=== PATIENT | male | born 1975 | race Caucasian/White ===

== ENCOUNTER 2016-12-26 09:16 | Emergency (ER) | payer SELFPAY ==
[2016-12-26] MEDS ORDERED: Ibuprofen 800 MG TAB ONE (10:07)
[2016-12-26] MEDS ORDERED: Dexamethasone 10 MG/ML VIAL ONE (10:07)
[2016-12-26] MEDS ORDERED: Azithromycin 250 MG TAB ONE (10:07)
== END 2016-12-26 10:44 | disposition home or self-care (01) ==
LOC: ERS 09:16
DX: J04.0 Acute laryngitis (principal); J40 Bronchitis, not specified as acute or chronic; F17.210 Nicotine dependence, cigarettes, uncomplicated
CPT/HCPCS: 87081; 87430; 96372; 99406; J1100

== ENCOUNTER 2018-07-23 15:33 | Emergency (ER) | payer SELFPAY | END 2018-07-23 17:04 | disposition left against medical advice (07) | LOC: ERS 15:33 | DX: R19.7 Diarrhea, unspecified (principal); R50.9 Fever, unspecified; F32.9 Major depressive disorder, single episode, unspecified; F17.210 Nicotine dependence, cigarettes, uncomplicated | CPT/HCPCS: 99284 ==

== ENCOUNTER 2019-02-27 10:14 | Emergency (ER) | payer OTHER, SELFPAY ==
--- NOTE | 2019-03-01 12:02 | EKG ---
Test Reason : Blood Pressure : / mmHG Vent. Rate : 082 BPM Atrial Rate : 082 BPM P-R Int : 148 ms QRS Dur : 082 ms QT Int : 372 ms P-R-T Axes : 053 -16 026 degrees QTc Int : 434 ms Normal sinus rhythm Moderate voltage criteria for LVH, may be normal variant Borderline ECG Confirmed by REECE MCGILL MD ([id number]), associate editor NICHOLAS FRAIRE ([id number] on 03/01/2019 12:02:03 PM Referred By: Confirmed By:REECE MCGILL MD
== END 2019-02-27 12:25 | disposition home or self-care (01) ==
LOC: ERS 10:14
DX: E86.0 Dehydration (principal); R53.1 Weakness; F32.9 Major depressive disorder, single episode, unspecified; F17.210 Nicotine dependence, cigarettes, uncomplicated
CPT/HCPCS: 93005; 94760

== ENCOUNTER 2019-12-10 14:32 | Inpatient (IN) | payer BC, OTHER ==
[~2019-12-10 14:32] MED LIST: Dexamethasone 20 MG/5 ML VIAL ONE; Glycopyrrolate 0.2 MG/ML 5 ML SYRINGE ONE; Iopamidol-370 76% 500 ML 1 ML ONE; Ketorolac Tromethamine 30 MG/ML VIAL ONE; Lidocaine 1% PF 5 ML VIAL ONE; Ondansetron PF 4 MG/2 ML Vial ONE; PROPOFOL 200 MG/20 ML VIAL ONE; Rocuronium Bromide 10 MG/ML (10ML VIAL) ONE; Succinylcholine 200 MG/10 ml SYRINGE FS ONE
--- NOTE | 2019-12-10 15:25 | RAD ---
XR Chest 1 View Portable HISTORY: Chest pain FINDINGS: The heart size is normal. The lungs are well expanded without focal areas of consolidation, pneumothorax or pleural effusions. IMPRESSION: No radiographic evidence of acute cardiopulmonary process.
[2019-12-10 15:41] LABS: #Monocytes 1.4 thou/uL (0.11-0.59); #Neutrophils 15.5 thou/uL (1.40-6.50); %Basophils 0.1 % (0.0-1.0); %Eosinophils 0.2 % (0.0-10.0); %Lymphocytes 5.8 % (21.0-51.0); %Monocytes 7.9 % (0.0-10.0); %Neutrophils 86.1 % (42.0-75.0); Hemoglobin 15.3 g/dL (14.0-18.0); Mean Corpuscular HGB CONC 33.8 g/dL (32.0-36.0); Mean Corpuscular Hemoglobin 34.6 pg (27.0-31.0); Platelet Count 360 thou/uL (130-400); RBC Distribution Width 11.7 % (11.5-14.5); Red Blood Cell (RBC) Count 4.42 mill/uL (4.70-6.10); White Blood Cell (WBC) Count 18.1 thou/uL (4.8-10.8)
[2019-12-10 16:05] LABS: ALT (SGPT) 25 U/L (8-55); AST (SGOT) 18 U/L (5-34); Albumin 4.3 g/dL (3.5-5.0); Alkaline Phosphatase 101 U/L (40-110); Anion Gap 15 mmol/L (10-20); BUN (Urea Nitrogen) 12 mg/dL (8.9-20.6); Bilirubin, Total 1.8 mg/dL (0.2-1.2); Calc. Creatinine Clearance 0 mL/min (70-130); Calcium 9.6 mg/dL (7.8-10.44); Carbon Dioxide 23 mmol/L (22-29); Chloride 100 mmol/L (98-107); Estimated GFR-MDRD Greater than 90; Globulin 3.2 g/dL (2.4-3.5); Glucose 131 mg/dL (70-105); Lipase 13 U/L (8-78); Potassium 3.5 mmol/L (3.5-5.1); Protein, Total 7.5 g/dL (6.0-8.3); Sodium 134 mmol/L (136-145)
[2019-12-10] MEDS ORDERED: Fentanyl 100 MCG/2 ML VIAL ONE ×3 (16:29→21:03)
[2019-12-10] MEDS ORDERED: Ondansetron PF 4 MG/2 ML Vial ONE (16:29)
--- NOTE | 2019-12-10 17:01 | CT ---
EXAM: CT ABDOMEN AND PELVIS HISTORY: Severe abdominal pain and cramping. Chest pain. COMPARISON: None. Procedure: Multiple contiguous axial images were obtained and a CT of the abdomen and pelvis with IV contrast. C oronal reformats were performed. FINDINGS: Lower Chest: Minimal dependent atelectatic changes. Calcified granuloma in the left lower lobe. Vessels: Normal caliber aorta. No periaortic fat stranding. Minimal atherosclerosis. Heart: Normal heart size. No significant pericardial fluid Abdomen: Portal vein:Patent Gallbladder: No calcified gallstones. Normal caliber wall. Liver: within normal limits. Pancreas: within normal limits. Spleen: within normal limits. Adrenals: within normal limits. Kidneys: Symmetric enhancement. No obstructive uropathy. Peritoneum: There is stranding of the right lower quadrant mesentery. There appears be a small focus of extraluminal air with adjacent subtle hypodense focus measuring 0.6 cm. Bowel: Limited evaluation by the lack of oral contrast. There are slightly prominent small bowel loop s in the left upper quadrant, nonspecific. Ileocecal junction is decompressed. There are scattered fecal material in a nondistended, nondilated colon. Occasional diverticulum. No diverticulitis. Emana ting from the cecal apex is a dilated tubular structure, measuring 1.3 cm. At the base of the structure is mixed attenuation compatible with appendicoliths. The mid to distal portion is fluid and air-filled. There is evidence of adjacent fat stranding. A small outpouching of air, extraluminal with adjacent hypoattenuation as described above. A perforated appendix is suspected with a developin g microabscess. Mesentery and Retroperitoneum: Reactive lymph nodes in the right lower quadrant. Abdominal Wall: Umbilical hernia containing mesenteric fat. Pelvis: Reproductive Organs: Reproductive organs are unremarkable. Pelvis: No mass, lymphadenopathy, free air or free fluid. Bladder: within normal limits. Bones: Chronic changes. IMPRESSION: 1. Appendicitis. There is evidence of perforation with a small pockets of extraluminal air as well as a possibly developing micro-abscess. There is marked stranding of the right lower quadrant mesentery. Results of study conveyed to Dr. Delaney 12/10 2019 4:58 PM code CR
[2019-12-10] MEDS ORDERED: Piperacillin/Tazobactam 4.5 GM VIAL ONE (17:19)
[2019-12-10] MEDS ORDERED: metroNIDAZOLE 500 MG/100 ML BAG ONE (17:21)
[2019-12-10] MEDS ORDERED: Bupivacaine/Epinephrine 0.25% 30 ML VIAL ONE (17:27)
[2019-12-10 17:29] LABS: INR-International Normal Ratio 0.9; Prothrombin Time 12.6 sec (12.0-14.7)
[2019-12-10] MEDS ORDERED: Midazolam HCl 2 mg/2 ml Vial ONE (17:54)
--- NOTE | 2019-12-10 18:10 | HP ---
CHIEF COMPLAINT: Abdominal pain. HISTORY OF PRESENT ILLNESS: Mr. Belcher is a 44-year-old previously healthy man, who developed abdominal pain in both flanks yesterday afternoon. He states that he was uncomfortable all night and unable to get to sleep, and this morning, when he got up and started moving around, the pain seemed to radiate up into his chest. He became concerned that it might have something to do with heart. He tried to tough it out, but the pain was not getting any better, so he ended up coming into the emergency room. He had nausea, but was not feeling any better after throwing up. He has not had any fevers or chills. He has not had any diarrhea or dysuria. The pain is made worse by activity and helped slightly by lying very still and taking "yoga breaths". He also has been more comfortable since receiving fentanyl in the emergency room. No unusual ingestions or ill contacts. 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 He smokes a pack a day and has no other chronic health problems. He did take lisinopril briefly a few years ago after his father and he was under a lot of stress, but states that his blood pressure got better and he got off that. PAST MEDICAL HISTORY: Hypertension which reportedly resolved. PAST SURGICAL HISTORY: None. FAMILY HISTORY: Heart disease in his dad related to Agent [place] exposure, lung cancer and skin cancer in various family members. MEDICATIONS: None except ibuprofen. ALLERGIES: NO KNOWN DRUG ALLERGIES. REVIEW OF SYSTEMS: Ten-system review of systems is negative. He specifically denies cough, sore throat, runny nose, shortness of breath, myalgias, or loss of sense of smell or taste. PHYSICAL EXAMINATION: VITAL SIGNS: As per ER record; mild tachycardia with elevated blood pressure. GENERAL: A healthy-appearing man, in no acute distress. He is not flushed or toxic in appearance. He is not jaundiced or icteric. HEENT: Unremarkable. Pupils are equal and extraocular movements are symmetric. NECK: Supple without lymphadenopathy or thyroid nodules. HEART: Regular in its rate and rhythm without murmurs, rubs, or gallops. LUNGS: Clear to auscultation bilaterally. He does not have any pain with deep inspiration, although he states that when he 1st came to the hospital it did hurt to take a deep breath. ABDOMEN: Soft and nondistended. He has a reducible umbilical hernia, which is nontender with reduction. He is moderately tender to palpation in the left lower quadrant and very tender to palpation in the suprapubic and right lower quadrant. Nontender in the upper abdomen. He does not exhibit rigidity, rebound, or guarding. EXTREMITIES: Warm and well perfused with normal pedal pulses. NEUROLOGIC: No focal deficits. PSYCHIATRIC: Alert and oriented and appropriate with normal affect and linear thought processes. He does not have a depressed affect, although he does have a distant history of depression. LABORATORY DATA: Electrolytes are unremarkable. Bilirubin is mildly elevated at 1.8. Troponin is less than 0.01. Lipase is normal. White count is elevated at 18,000 with a left shift of 86% neutrophils, hematocrit is 45, and platelets are 360. Coags are normal. Chest x-ray shows no acute process. CT of the abdomen and pelvis shows a dilated appendix with periappendiceal stranding and possible gas outside of the appendix adjacent to the appendix within the mesentery. ASSESSMENT: Appendicitis, perforated by CT, with sepsis. He has only had symptoms for a little over 24 hours. I have recommended laparoscopic appendectomy. He will likely require washout and drain placement and admission for IV antibiotics postoperatively. The diagnosis and the recommended treatment were discussed with the patient in detail. Inherent risks of surgery were also discussed. These include, but are not limited to, bleeding; infection; risks of anesthesia; damage to nearby structures including bowel, blood vessels, and bladder; need for open surgery, and need for other procedures. He understands, accepts these risks, and wishes to proceed. All of his questions were answered. He has been posted emergently for the operating room. Job ID: [id number] [facility]
[2019-12-10 18:22] LABS: Bilirubin Negative (Negative); Blood, Urine Negative (Negative); Clarity Clear (Clear); Glucose, Urine (Dipstick) Normal (Negative); Ketone, Urine Trace mg/dL (Negative); Leukocyte Negative Leu/uL (Negative); Nitrite Negative (Negative); Protein, Urine (Dipstick) 10 mg/dL (Neg-Trace); Urobilinogen Normal mg/dL (Less than 2)
[2019-12-10 18:25] LABS: Specific Gravity, Urine 1.051 (1.002-1.036)
[2019-12-10] MEDS ORDERED: Morphine 2 MG/ML VIAL SLOW IVP PRN (20:30)
[2019-12-10] MEDS ORDERED: Promethazine HCl 25 MG/ML VIAL IM PRN (20:30)
[2019-12-10] MEDS ORDERED: Dextrose 50% Abboject 50 ML SYRINGE SLOW IVP PRN (20:30)
[2019-12-10] MEDS ORDERED: Ondansetron PF 4 MG/2 ML Vial IVP PRN (20:30)
[2019-12-10] MEDS ORDERED: Dextrose 5% in Water 1,000 ML IV PRN (20:30)
[2019-12-10] MEDS ORDERED: Acetaminophen 325 MG TAB PO PRN (20:30)
[2019-12-10] MEDS ORDERED: Acetaminophen 650 MG Suppository PR PRN (20:30)
[2019-12-10] MEDS: D5 1/2 NS w/20 mEq KCL 1,000 ML IV SCH (21:52)
[2019-12-10] MEDS: Famotidine/PF 20 mg/2ml Vial SLOW IVP SCH (21:52)
[2019-12-10] MEDS: Famotidine 20 MG TAB PO SCH (21:53)
[2019-12-10 23:25] VITALS: BMI 27.5
[2019-12-10] MEDS: Piperacillin/Tazobactam 3.375 GM in Sodium Chloride 0.9% 100 ML IVPB SCH (23:34)
[2019-12-10] MEDS: Morphine 4 MG/ML VIAL SLOW IVP PRN (23:35)
[2019-12-11 05:18] LABS: #Lymphocytes 0.5 thou/uL (1.20-3.40); #Monocytes 0.7 thou/uL (0.11-0.59); #Neutrophils 11.4 thou/uL (1.40-6.50); %Basophils 0.3 % (0.0-1.0); %Eosinophils 0.1 % (0.0-10.0); %Lymphocytes 3.8 % (21.0-51.0); %Monocytes 5.3 % (0.0-10.0); %Neutrophils 90.5 % (42.0-75.0); Hemoglobin 12.8 g/dL (14.0-18.0); Mean Corpuscular HGB CONC 32.6 g/dL (32.0-36.0); Mean Corpuscular Hemoglobin 33.7 pg (27.0-31.0); Mean Platelet Volume 7.2 fL (7.4-10.4); Platelet Count 305 thou/uL (130-400); RBC Distribution Width 11.7 % (11.5-14.5); Red Blood Cell (RBC) Count 3.79 mill/uL (4.70-6.10); White Blood Cell (WBC) Count 12.6 thou/uL (4.8-10.8)
[2019-12-11 05:51] LABS: Anion Gap 13 mmol/L (10-20); BUN (Urea Nitrogen) 10 mg/dL (8.9-20.6); Calc. Creatinine Clearance 136 mL/min (70-130); Calcium 8.6 mg/dL (7.8-10.44); Carbon Dioxide 22 mmol/L (22-29); Chloride 107 mmol/L (98-107); Estimated GFR-MDRD 89; Glucose 193 mg/dL (70-105); Sodium 138 mmol/L (136-145)
[2019-12-11] MEDS: D5 1/2 NS w/20 mEq KCL 1,000 ML IV SCH ×2 (05:57→17:47)
[2019-12-11] MEDS: Piperacillin/Tazobactam 3.375 GM in Sodium Chloride 0.9% 100 ML IVPB SCH ×3 (05:57→17:58)
[2019-12-11] MEDS: Morphine 4 MG/ML VIAL SLOW IVP PRN ×2 (08:19→16:01)
[2019-12-11] MEDS: Famotidine 20 MG TAB PO SCH ×2 (08:20→21:11)
[2019-12-11] MEDS: Famotidine/PF 20 mg/2ml Vial SLOW IVP SCH ×2 (09:08→22:30)
[2019-12-11] MEDS: Enoxaparin Sodium 40 MG/0.4 ML SYRINGE SC SCH (09:44)
[2019-12-11 12:56] LABS: SARS-CoV-2 MS2 Positive; SARS-CoV-2 N Gene Negative; SARS-CoV-2 S Gene Negative; SARS-CoV-2 by NAA Not Detected (NotDetected); SARS-CoV-2 orf1ab Negative
[2019-12-11] MEDS ORDERED: HYDROcodone/Acetaminophen 5/325 mg Tablet PO PRN (15:58)
[2019-12-11] MEDS ORDERED: Ibuprofen 600 MG TAB PO PRN (15:58)
[2019-12-11] MEDS ORDERED: Ibuprofen 200 MG TAB PO PRN ×2 (15:58→16:22)
[2019-12-11] MEDS ORDERED: traMADol HCl 50 MG TAB PO PRN ×2 (15:58)
[2019-12-11] MEDS ORDERED: Acetaminophen 325 MG TAB PO PRN (15:58)
--- NOTE | 2019-12-11 16:02 | PDOC.GSPN ---
Surgery Progress Note: Subj - Subjective Narrative: Patient is feeling fine. He has been ambulating in the halls and passing gas. He is not nauseated. Pain is controlled. He is tolerating a regular diet. Afebrile with normal vital signs. Blood sugars are running a little bit high earlier but hemoglobin A1c is normal. White count has gone from 18-12. Abdomen is soft and nondistended. Incisions look good. There is somewhat murky drainage in the MYAH but not a large amount. It has not been emptied since this morning and is only about a quarter full. Assessment/plan: Perforated appendicitis doing well. Tolerating a diet. Oral pain medications. Continue IV antibiotics but Hep-Lock fluids. Leave MYAH. Surgery Progress Note: Obj - Vital signs Vital signs: Vital Signs - Most Recent Temp Pulse Resp BP Pulse Ox 98.1 F 85 18 124/81 95 12/11/19 11:10 12/11/19 11:10 12/11/19 11:10 12/11/19 11:10 12/11/19 11:10 Surgery Progress Note: Results - Labs Result Diagrams: 12/11/19 05:06 12/11/19 05:06 Lab results: Laboratory Results - last 12 hr 12/10/19 12/11/19 12/11/19 17:59 05:04 05:06 WBC RBC Hgb Hct MCV MCH MCHC RDW Plt Count MPV Neutrophils % Lymphocytes % Monocytes % Eosinophils % Basophils % Neutrophils # Lymphocytes # Monocytes # Eosinophils # Basophils # Sodium 138 Potassium 4.0 Chloride 107 Carbon Dioxide 22 Anion Gap 13 BUN 10 Creatinine 0.92 Estimated GFR (MDRD) 89 Glucose 193 H Hemoglobin A1c 5.0 Calcium 8.6 SARS-CoV-2 (PCR) Not Detected 12/11/19 05:06 WBC 12.6 H RBC 3.79 L Hgb 12.8 L Hct 39.1 L MCV 103.0 H MCH 33.7 H MCHC 32.6 RDW 11.7 Plt Count 305 MPV 7.2 L Neutrophils % 90.5 H Lymphocytes % 3.8 L Monocytes % 5.3 Eosinophils % 0.1 Basophils % 0.3 Neutrophils # 11.4 H Lymphocytes # 0.5 L Monocytes # 0.7 H Eosinophils # 0.0 Basophils # 0.0 Sodium Potassium Chloride Carbon Dioxide Anion Gap BUN Creatinine Estimated GFR (MDRD) Glucose Hemoglobin A1c Calcium SARS-CoV-2 (PCR)
[2019-12-11] MEDS: Docusate 100 MG CAP PO SCH (21:11)
[2019-12-11] MEDS: HYDROcodone/Acetaminophen 5/325 mg Tablet PO PRN (21:17)
[2019-12-12] MEDS: Piperacillin/Tazobactam 3.375 GM in Sodium Chloride 0.9% 100 ML IVPB SCH ×4 (00:26→18:15)
[2019-12-12] MEDS: HYDROcodone/Acetaminophen 5/325 mg Tablet PO PRN ×3 (03:40→18:22)
[2019-12-12 05:23] LABS: #Eosinphils 0.1 thou/uL (0.0-0.7); #Lymphocytes 1.7 thou/uL (1.20-3.40); #Monocytes 0.8 thou/uL (0.11-0.59); #Neutrophils 8.5 thou/uL (1.40-6.50); %Basophils 0.2 % (0.0-1.0); %Eosinophils 0.5 % (0.0-10.0); %Lymphocytes 15.3 % (21.0-51.0); %Monocytes 7.2 % (0.0-10.0); %Neutrophils 76.8 % (42.0-75.0); Hemoglobin 12.4 g/dL (14.0-18.0); Mean Corpuscular HGB CONC 33.8 g/dL (32.0-36.0); Mean Corpuscular Hemoglobin 35.7 pg (27.0-31.0); Mean Platelet Volume 7.2 fL (7.4-10.4); Platelet Count 293 thou/uL (130-400); RBC Distribution Width 11.6 % (11.5-14.5); Red Blood Cell (RBC) Count 3.46 mill/uL (4.70-6.10)
[2019-12-12 05:41] LABS: ALT (SGPT) 42 U/L (8-55); AST (SGOT) 33 U/L (5-34); Albumin 3.3 g/dL (3.5-5.0); Alkaline Phosphatase 90 U/L (40-110); Anion Gap 12 mmol/L (10-20); BUN (Urea Nitrogen) 16 mg/dL (8.9-20.6); Bilirubin, Total 0.7 mg/dL (0.2-1.2); Calc. Creatinine Clearance 140 mL/min (70-130); Carbon Dioxide 24 mmol/L (22-29); Chloride 105 mmol/L (98-107); Estimated GFR-MDRD Greater than 90; Globulin 2.8 g/dL (2.4-3.5); Glucose 105 mg/dL (70-105); Potassium 3.8 mmol/L (3.5-5.1); Protein, Total 6.1 g/dL (6.0-8.3); Sodium 137 mmol/L (136-145)
[2019-12-12] MEDS ORDERED: Lisinopril 10 MG TAB PO SCH (09:00)
[2019-12-12] MEDS: Acetaminophen 325 MG TAB PO PRN (09:05)
[2019-12-12] MEDS: Docusate 100 MG CAP PO SCH ×2 (09:06→20:20)
[2019-12-12] MEDS: Enoxaparin Sodium 40 MG/0.4 ML SYRINGE SC SCH (09:06)
[2019-12-12] MEDS: Famotidine 20 MG TAB PO SCH ×2 (09:06→20:21)
[2019-12-12] MEDS: Famotidine/PF 20 mg/2ml Vial SLOW IVP SCH (09:06)
--- NOTE | 2019-12-12 11:30 | PDOC.OP ---
Operative Note - Operative Note Operative Note: PROCEDURE: Laparoscopic appendectomy. SURGEON: Ministerio Momin M.D. DATE OF PROCEDURE: 11/10/2019. PREOPERATIVE DIAGNOSIS: Perforated appendicitis, umbilical hernia. POSTOPERATIVE DIAGNOSIS: Perforated appendicitis, umbilical hernia. HISTORY: Patient is a 44-year-old man who presented with 24-hour history of signs and symptoms concerning for appendicitis. CT scan showed evidence of perforated appendicitis with extraluminal gas confined to the region of the appendix. He was incidentally noted on examination to have a reducible umbilical hernia. Recommendation was made to proceed with laparoscopic appendectomy with drainage of periappendiceal abscess and suture only repair of umbilical hernia. DESCRIPTION OF PROCEDURE: After informed consent was obtained and appropriate antibiotics continued, the patient was taken to the operating room and placed in the supine position and general endotracheal anesthesia was administered. The bladder was decompressed with a Farrell catheter and the abdomen was prepped and draped in the standard sterile fashion. Local anesthesia was infused to the skin and subcutaneous tissues superior to the umbilicus. A transverse skin incision was made and the hernia sac dissected free circumferentially down to the level of the fascia. The sac was opened and a 10 mm trocar placed through the fascial defect. Carbon dioxide gas was insufflated. Opening pressure was less than 5. Carbon dioxide gas was insufflated to an intra-abdominal pressure 15 and the patient tolerated this well. The laparoscope was advanced into the abdominal cavity which was carefully examined. There were no significant adhe sions to the anterior abdominal wall and no generalized peritonitis although there was some slightly cloudy fluid in the pelvis. Two additional 5 mm ports were placed in the suprapubic and left lateral abdomen under direct laparoscopic vision after local anesthesia was infused at these sites. The cecum was identified and the terminal ileum mobilized off of the inflamed appendix. The sigmoid colon was mobilized on the other side of the inflamed appendix and the appendix was identified and appeared very inflamed with necrotic midsection and some brown purulent fluid coming from the mesoappendix. The periappendiceal abscess was drained and the pus sent for Gram stain and culture. The appendix was grasped and elevated. The mesoappendix was then sequentially ligated and divided, taking care to resect the portion of the mesoappendix containing the abscess, down to the base of the appendix, which was normal in appearance and was clearly seen to be at the confluence of the tenia. Two Endoloops were placed around the base of the appendix and the appendix was divided between these Endoloops, placed into an EndoCatch bag and drawn out through the umbilical incision. The trocar was then replaced and the periappendiceal site irrigated to clear and hemostasis verified. The abdominal cavity was then copiously irrigated with several liters of warm saline. There were no significant adhesions outside of the area of the appendix and with the exception of the slightly cloudy fluid in the pelvis no other fluid collections were encountered. A MYAH drain was placed into the abdominal cavity and drawn out through the left lateral quadrant trocar site. This was placed to the right appendiceal bed inferior to the cecum gutter and down into the pelvis. The suprapubic trocar was removed and hemostasis verified. Carbon dioxide gas was desufflated through the umbilical trocar which was then removed. The hernia sac was resected and the fascia closed with interrupted 0 Vicryl suture under direct vision with excellent result. The skin incisions were irrigated and additional local anesthesia infused at each site. The skin was closed with 4-0 subcuticular Monocryl sutures and Dermabond dressings were placed. Pressure dressing was placed the umbilical hernia site and the MYAH was secured to the skin with a 3-0 nylon suture and a drain sponge and Tegaderm placed. The patient was extubated and taken to the recovery room in good condition. Estimated blood loss was minimal. There were no complications. SPECIMEN: Appendix, and periappendiceal fluid for Gram stain and culture.
--- NOTE | 2019-12-12 11:33 | PDOC.GSPN ---
Surgery Progress Note: Subj - Subjective Narrative: Patient got quite bloated and uncomfortable yesterday but has had a couple bowel movements and feels much better today. He states that his stools are not completely formed but also not watery. He has been ambulating a lot and passing gas. He is tolerating his diet. Afebrile. White count is still mildly elevated. His blood pressure has been elevated today. Abdomen is soft and nondistended with appropriate postoperative tenderness in the lower quadrants. MYAH output down from postoperative day 1 and clearer in appearance but still slightly cloudy. Pansensitive E. coli on periappendiceal abscess cultures. Assessment/plan: Doing well overall. Still with leukocytosis and slightly cloudy MYAH output. Continue IV antibiotics for now. Pain is well controlled on minimal oral pain medications. He is having a headache which may be due to his hypertension. He has a history of hypertension in the past but has been off medications for the past couple years. He may need to resume treatment for this. I have asked the hospitalist to see him. Surgery Progress Note: Obj - Vital signs Vital signs: Vital Signs - Most Recent Temp Pulse Resp BP Pulse Ox 98.1 F 75 20 150/102 H 94 L 12/12/19 08:19 12/12/19 08:19 12/12/19 08:19 12/12/19 08:19 12/12/19 08:19 Surgery Progress Note: Results - Labs Result Diagrams: 12/12/19 05:05 12/12/19 05:05 Lab results: Laboratory Results - last 12 hr 12/12/19 12/12/19 05:05 05:05 WBC 11.0 H RBC 3.46 L Hgb 12.4 L Hct 36.6 L MCV 106.0 H MCH 35.7 H MCHC 33.8 RDW 11.6 Plt Count 293 MPV 7.2 L Neutrophils % 76.8 H Lymphocytes % 15.3 L Monocytes % 7.2 Eosinophils % 0.5 Basophils % 0.2 Neutrophils # 8.5 H Lymphocytes # 1.7 Monocytes # 0.8 H Eosinophils # 0.1 Basophils # 0.0 Sodium 137 Potassium 3.8 Chloride 105 Carbon Dioxide 24 Anion Gap 12 BUN 16 Creatinine 0.89 Estimated GFR (MDRD) Greater than 90 Glucose 105 Calcium 9.0 Total Bilirubin 0.7 AST 33 ALT 42 Alkaline Phosphatase 90 Serum Total Protein 6.1 Albumin 3.3 L Globulin 2.8 Albumin/Globulin Ratio 1.2
[2019-12-12] MEDS: hydrALAZINE 20 MG/ML VIAL SLOW IVP PRN (11:35)
[2019-12-12] MEDS ORDERED: Saccharomyces boulardii 250 MG CAP PO SCH (12:15)
--- NOTE | 2019-12-12 18:12 | PDOC.HHP ---
Hospitalist HPI - History of Present Illness Consult for hypertension History of Present Illness: Mr. Belcher is 44 year-old male with a past medical history of hypertension who was admitted for a perforated appendicitis, now s/p laprosocpic appendectomy with Dr. Momin on 12/10/2019. Hospitalist service consulted for management of hypertension. Patient reports he has had HTN in the past, but that this was during a stressful period in his life, when his father passed. He self-discontinued this after his stress decreased. Patient does not have a primary care provider. Currently he denies any CP, SOB, palpitations. Reports mild abdominal pain near incisions. Has had BM since surgery. No lower extremity swelling. No other concerns or complaints at this time. Chart and records reviewed. Hospitalist ROS - Review of Systems Constitutional: denies: fever, chills, sweats, weakness, malaise, other Eyes: denies: vision change ENT: denies: nose congestion, throat pain Respiratory: denies: cough, dry, shortness of breath, hemoptysis, SOB with excertion, pleuritic pain, sputum, wheezing, other Cardiovascular: denies: chest pain, palpitations, orthopnea, paroxysmal noc. dyspnea, edema, light headedness, other Gastrointestinal: reports: abdominal pain (near excisions). denies: nausea, vomiting, diarrhea, constipation, melena, hematochezia, other Genitourinary: denies: dysuria, frequency, incontinence, hematuria, retention, other Musculoskeletal: denies: neck pain, shoulder pain, arm pain, back pain, hand pain, leg pain, foot pain, other Skin: denies: rash, lesions, asim, bruising, other Neurological: denies: weakness, numbness, incoordination, change in speech, confusion, seizures, other - Medication Medications: No home medications. NKDA Hospitalist History - Past Medical History Other Medical History: Past medical history of HTN - Past Surgical History Other Surgical History: Past surgical history of laproscopic appendectomy - Family History Other Family History: Family history of heart disease in his father, which he reports was from agent [place] exposure. - Social History Smoking Status: Never smoker Alcohol: reports: None Drugs: reports: none Living Situation: With Family Activity level: independent ambulation - Exam General Appearance: NAD, awake alert Eye: PERRL, anicteric sclera ENT: normocephalic atraumatic, no oropharyngeal lesions, moist mucosa Neck: supple, symmetric, no JVD, no thyromegaly, no lymphadenopathy, no carotid bruit Heart: RRR, no murmur, no gallops, no rubs, normal peripheral pulses Respiratory: CTAB, no wheezes, no rales, no ronchi, normal chest expansion, no tachypnea, normal percussion Gastrointestinal: soft, non-distended, normal bowel sounds, no palpable masses, no hepatomegaly, no splenomegaly, no bruit, tender to palpation (near inscision sites) Extremities: no cyanosis, no clubbing, no edema Skin: normal turgor, no lesions, no rashes Neurological: cranial nerve grossly intact, normal sensation to touch, no weakness, no focal deficits, no new deficit Musculoskeletal: normal tone, normal strength, no muscle wasting Psychiatric: normal affect, normal behavior, A&O x 3 Hospitalist Results - Labs Result Diagrams: 12/12/19 05:05 12/12/19 05:05 Lab results: WBC 11.0 thou/uL (4.8-10.8) H 12/12/19 05:05 Hgb 12.4 g/dL (14.0-18.0) L 12/12/19 05:05 Hct 36.6 % (42.0-52.0) L 12/12/19 05:05 MCV 106.0 fL (78.0-98.0) H 12/12/19 05:05 Plt Count 293 thou/uL (130-400) 12/12/19 05:05 Neutrophils % 76.8 % (42.0-75.0) H 12/12/19 05:05 Sodium 137 mmol/L (136-145) 12/12/19 05:05 Potassium 3.8 mmol/L (3.5-5.1) 12/12/19 05:05 Chloride 105 mmol/L (98-107) 12/12/19 05:05 Carbon Dioxide 24 mmol/L (22-29) 12/12/19 05:05 BUN 16 mg/dL (8.9-20.6) 12/12/19 05:05 Creatinine 0.89 mg/dL (0.7-1.3) 12/12/19 05:05 Glucose 105 mg/dL (70-105) 12/12/19 05:05 Calcium 9.0 mg/dL (7.8-10.44) 12/12/19 05:05 Total Bilirubin 0.7 mg/dL (0.2-1.2) 12/12/19 05:05 AST 33 U/L (5-34) 12/12/19 05:05 ALT 42 U/L (8-55) 12/12/19 05:05 Alkaline Phosphatase 90 U/L (40-110) 12/12/19 05:05 Troponin I Less than 0.010 ng/mL (< 0.028) 12/10/19 15:31 Serum Total Protein 6.1 g/dL (6.0-8.3) 12/12/19 05:05 Albumin 3.3 g/dL (3.5-5.0) L 12/12/19 05:05 Lipase 13 U/L (8-78) 12/10/19 15:31 Urine Ketones Trace mg/dL (Negative) A 12/10/19 17:37 Urine Blood Negative (Negative) 12/10/19 17:37 Urine Nitrite Negative (Negative) 12/10/19 17:37 Ur Leukocyte Esterase Negative Tristin/uL (Negative) 12/10/19 17:37 Hospitalist H&P A/P - Plan Plan: s/p laproscopic appendectomy Patient POD #2 from laproscopic appendectomy with Dr. Momin on 12/10/2019. Patient tolerated procedure well with no complications. Patient initially admitted for perforated apendicitis. Started on IV zosyn. WBC improving to 18 to 11.0. Patient doing overal well post-procedure. Plan -Management per surgical team -Encouraged IS, ambulation -Continue IV zosyn Hypertension Patient reports previous history of HTN and that he was on lisinopril during a time when he was stressed after his father passing. He self discontinued his medication, since he thought he would no longer need it. During admission, BP consistently elevated to high 140s, 150s. Has recieved multiple doses of prn hydralazine. Patient amenable to restarting lisinopril. Will restart and monitor during admission. Encouraged patient to establish care with a primary care provider who can continue to monitor his BP. Patient does report he has a BP monitor at home. Encouraged patient to check BP readings occasionally at home, and at least once next week. Plan -Start lisinopril 10 mg daily -Follow up with primary care provider DVT prophylaxis: per surgical team FULL CODE
[2019-12-12] MEDS: Lisinopril 10 MG TAB PO SCH (20:22)
[2019-12-13] MEDS: Morphine 4 MG/ML VIAL SLOW IVP PRN (00:03)
[2019-12-13] MEDS: Famotidine/PF 20 mg/2ml Vial SLOW IVP SCH ×3 (00:14→22:33)
[2019-12-13] MEDS: Piperacillin/Tazobactam 3.375 GM in Sodium Chloride 0.9% 100 ML IVPB SCH ×3 (00:48→12:31)
[2019-12-13] MEDS ORDERED: Amlodipine 5 MG TAB PO SCH (01:15)
[2019-12-13] MEDS ORDERED: Labetalol HCl 100 MG/20 ML VIAL SLOW IVP SCH (04:30)
[2019-12-13 05:37] LABS: #Basophils 0.1 thou/uL (0.0-0.2); #Eosinphils 0.3 thou/uL (0.0-0.7); #Lymphocytes 1.3 thou/uL (1.20-3.40); #Monocytes 0.8 thou/uL (0.11-0.59); #Neutrophils 7.9 thou/uL (1.40-6.50); %Basophils 0.6 % (0.0-1.0); %Eosinophils 3.3 % (0.0-10.0); %Lymphocytes 12.6 % (21.0-51.0); %Neutrophils 75.5 % (42.0-75.0); Hemoglobin 13.9 g/dL (14.0-18.0); Mean Corpuscular HGB CONC 33.7 g/dL (32.0-36.0); Mean Corpuscular Hemoglobin 34.5 pg (27.0-31.0); Mean Platelet Volume 6.9 fL (7.4-10.4); Platelet Count 403 thou/uL (130-400); RBC Distribution Width 11.6 % (11.5-14.5); Red Blood Cell (RBC) Count 4.02 mill/uL (4.70-6.10); White Blood Cell (WBC) Count 10.4 thou/uL (4.8-10.8)
[2019-12-13] MEDS: Famotidine 20 MG TAB PO SCH ×2 (08:25→22:32)
[2019-12-13] MEDS: Docusate 100 MG CAP PO SCH ×2 (08:25→22:31)
[2019-12-13] MEDS: Saccharomyces boulardii 250 MG CAP PO SCH (08:25)
[2019-12-13] MEDS: Enoxaparin Sodium 40 MG/0.4 ML SYRINGE SC SCH (08:25)
[2019-12-13] MEDS: Acetaminophen 325 MG TAB PO PRN ×2 (12:29→22:31)
--- NOTE | 2019-12-13 14:17 | PDOC.GSPN ---
Surgery Progress Note: Subj - Subjective Narrative: Well. Tolerating diet without nausea or vomiting. States that his pain is improved. Surgery Progress Note: Obj - Vital signs Vital signs: Vital Signs - Most Recent Temp Pulse Resp BP Pulse Ox 98.2 F 77 18 148/96 H 96 12/13/19 11:50 12/13/19 11:50 12/13/19 11:50 12/13/19 11:50 12/13/19 11:50 - Physical Exam General: no distress, well developed, well nourished Cardiovascular: regular rate and rhythm Respiratory: normal expansion, normal respiratory effort Abdomen: soft, nondistended, tender (Improving) Surgery Progress Note: Results - Labs Result Diagrams: 12/13/19 05:29 12/12/19 05:05 Lab results: Laboratory Results - last 12 hr 12/13/19 12/13/19 12/13/19 05:29 06:11 10:28 WBC 10.4 RBC 4.02 L Hgb 13.9 L Hct 41.2 L MCV 103.0 H MCH 34.5 H MCHC 33.7 RDW 11.6 Plt Count 403 H MPV 6.9 L Neutrophils % 75.5 H Lymphocytes % 12.6 L Monocytes % 8.0 Eosinophils % 3.3 Basophils % 0.6 Neutrophils # 7.9 H Lymphocytes # 1.3 Monocytes # 0.8 H Eosinophils # 0.3 Basophils # 0.1 POC Glucose 122 H 176 H Surgery Progress Note: A/P - Problem (1) Acute appendicitis Current Visit: Yes Code(s): K35.80 - UNSPECIFIED ACUTE APPENDICITIS Status: Acute Qualifiers: Acute appendicitis type: with localized peritonitis Appendicitis gangrene presence: with gangrene Appendicitis perforation presence: with perforation Appendicitis abscess presence: with abscess Qualified Code(s): K35.33 - Acute appendicitis with perforation and localized peritonitis, with abscess - Plan Plan: Status post laparoscopic appendectomy with drain placement. Patient afebrile with normalized white count. Will discontinue antibiotics and continue regular diet. Possible discharge home tomorrow.
[2019-12-13 18:02] LABS: #Basophils 0.1 thou/uL (0.0-0.2); #Eosinphils 0.4 thou/uL (0.0-0.7); #Lymphocytes 1.6 thou/uL (1.20-3.40); #Monocytes 0.8 thou/uL (0.11-0.59); %Basophils 1.2 % (0.0-1.0); %Eosinophils 4.6 % (0.0-10.0); %Lymphocytes 20.2 % (21.0-51.0); %Monocytes 10.1 % (0.0-10.0); Hemoglobin 14.1 g/dL (14.0-18.0); Mean Corpuscular HGB CONC 34.2 g/dL (32.0-36.0); Mean Corpuscular Hemoglobin 35.3 pg (27.0-31.0); Platelet Count 424 thou/uL (130-400); RBC Distribution Width 11.6 % (11.5-14.5); Red Blood Cell (RBC) Count 3.98 mill/uL (4.70-6.10); White Blood Cell (WBC) Count 7.8 thou/uL (4.8-10.8)
[2019-12-13] MEDS: Lisinopril 10 MG TAB PO SCH (22:32)
[2019-12-14] MEDS ORDERED: Labetalol HCl 100 MG/20 ML VIAL SLOW IVP SCH (00:45)
[2019-12-14] MEDS ORDERED: hydrALAZINE 25 MG TAB PO SCH (04:30)
[2019-12-14 05:57] LABS: #Basophils 0.1 thou/uL (0.0-0.2); #Eosinphils 0.4 thou/uL (0.0-0.7); #Lymphocytes 1.6 thou/uL (1.20-3.40); #Monocytes 0.8 thou/uL (0.11-0.59); #Neutrophils 5.6 thou/uL (1.40-6.50); %Basophils 0.9 % (0.0-1.0); %Eosinophils 4.8 % (0.0-10.0); %Monocytes 9.3 % (0.0-10.0); Hemoglobin 14.6 g/dL (14.0-18.0); Mean Corpuscular HGB CONC 32.9 g/dL (32.0-36.0); Mean Corpuscular Hemoglobin 34.1 pg (27.0-31.0); Platelet Count 426 thou/uL (130-400); RBC Distribution Width 11.7 % (11.5-14.5); Red Blood Cell (RBC) Count 4.27 mill/uL (4.70-6.10); White Blood Cell (WBC) Count 8.5 thou/uL (4.8-10.8)
[2019-12-14] MEDS: Famotidine 20 MG TAB PO SCH (09:27)
[2019-12-14] MEDS: Docusate 100 MG CAP PO SCH (09:27)
[2019-12-14] MEDS: Saccharomyces boulardii 250 MG CAP PO SCH (09:28)
[2019-12-14] MEDS: HYDROcodone/Acetaminophen 5/325 mg Tablet PO PRN (09:28)
[2019-12-14] MEDS: Enoxaparin Sodium 40 MG/0.4 ML SYRINGE SC SCH (09:28)
[2019-12-14] MEDS: hydrALAZINE 20 MG/ML VIAL SLOW IVP PRN (09:32)
[2019-12-14] MEDS ORDERED: Amlodipine 10 MG TAB PO SCH (09:45)
[2019-12-14] MEDS ORDERED: Lisinopril 20 MG TAB PO SCH ×2 (09:45→21:00)
[2019-12-14] MEDS: Famotidine/PF 20 mg/2ml Vial SLOW IVP SCH (10:29)
--- NOTE | 2019-12-14 10:41 | PDOC.HOSPP ---
- Subjective Encounter Date: 12/14/19 Encounter Time: 10:30 Subjective: pt up in bed no complains - Objective Vital Signs & Weight: Vital Signs (12 hours) Temp Pulse Resp BP BP BP Pulse Ox 12/14/19 10:32 80 141/90 H 12/14/19 09:32 73 155/105 H 12/14/19 07:27 98.0 F 73 18 155/105 H 96 12/14/19 06:22 155/104 H 12/14/19 04:33 74 158/108 H 12/14/19 03:27 158/108 H 12/14/19 03:24 98.4 F 74 18 160/110 H 97 12/14/19 02:22 97.7 F 69 18 163/112 H 97 12/14/19 00:49 67 168/113 H 12/13/19 23:46 97.7 F 67 18 168/113 H 97 Weight Weight 208 lb 12.8 oz I&O: 12/13/19 12/14/19 12/15/19 07:59 06:59 06:59 Intake Total 260 Output Total Balance 260 Result Diagrams: 12/14/19 05:45 12/12/19 05:05 Additional Labs: Accuchecks 12/14/19 12/13/19 12/13/19 05:40 22:43 15:47 POC Glucose 147 H 108 H 117 H Hospitalist ROS - Review of Systems Cardiovascular: denies: chest pain, palpitations, orthopnea, paroxysmal noc. dyspnea, edema, light headedness, other Gastrointestinal: denies: nausea, vomiting, abdominal pain, diarrhea, constipation, melena, hematochezia, other Genitourinary: denies: dysuria, frequency, incontinence, hematuria, retention, other - Medication Medications: Active Medications Generic Name Dose Route Start Last Admin Trade Name Freq PRN Reason Stop Dose Admin Acetaminophen 650 mg 12/11/19 15:58 12/13/19 22:31 Acetaminophen 325 Mg Tab PO 650 mg Q4H PRN Administration Moderate Pain (4-6) Acetaminophen 325 mg 12/11/19 15:58 12/13/19 06:26 Acetaminophen 325 Mg Tab PO 325 mg Q4H PRN Administration Headache/Fever/Mild Pain (1-3) Hydrocodone Bitart/Acetaminophen 1 tab 12/11/19 15:58 12/14/19 09:28 Hydrocodone/Acetaminophen 5/325 Mg Tablet PO 1 tab Q4H PRN Administration Moderate Pain (4-6) Amlodipine Besylate 10 mg 12/14/19 09:45 12/14/19 10:32 Amlodipine 10 Mg Tab PO 12/14/19 11:45 10 mg NOW LASHAWN Administration Docusate Sodium 100 mg 12/11/19 21:00 12/14/19 09:27 Docusate 100 Mg Cap PO 100 mg BID LASHAWN Administration Enoxaparin Sodium 40 mg 12/11/19 09:00 12/14/19 09:28 Enoxaparin Sodium 40 Mg/0.4 Ml Syringe SC 40 mg 0900 LASHAWN Administration Famotidine 20 mg 12/10/19 21:00 12/14/19 10:29 Famotidine/Pf 20 Mg/2ml Vial SLOW IVP Not Given Q12HR [facility] Famotidine 20 mg 12/10/19 21:00 12/14/19 09:27 Famotidine 20 Mg Tab PO 20 mg Q12HR LASHAWN Administration Hydralazine HCl 10 mg 12/10/19 20:30 12/14/19 09:32 Hydralazine 20 Mg/Ml Vial SLOW IVP 10 mg Q4H PRN Administration SBP > 170 or DBP > 100 Lisinopril 20 mg 12/14/19 09:45 12/14/19 10:32 Lisinopril 20 Mg Tab PO 12/14/19 11:45 20 mg NOW LASHAWN Administration Morphine Sulfate 4 mg 12/10/19 20:30 12/13/19 00:03 Morphine 4 Mg/Ml Vial SLOW IVP 4 mg Q2H PRN Administration Severe Pain (7-10) Saccharomyces Boulardii 250 mg 12/13/19 09:00 12/14/19 09:28 Saccharomyces Boulardii 250 Mg Cap PO 250 mg DAILY LASHAWN Administration - Exam Heart: negative: RRR, no murmur, no gallops, no rubs, normal peripheral pulses, irregular, diminshed peripheral pulses, murmur present, II/IV, III/IV Respiratory: negative: CTAB, no wheezes, no rales, no ronchi, normal chest expansion, no tachypnea, normal percussion, rales, rhonchi, tachypneic, wheezes Gastrointestinal: soft, normal bowel sounds Gastrointestinal - other findings: abdomen incision noted Hosp A/P (1) Hypertension Code(s): I10 - ESSENTIAL (PRIMARY) HYPERTENSION Status: Acute (2) Acute appendicitis Code(s): K35.80 - UNSPECIFIED ACUTE APPENDICITIS Status: Acute Qualifiers: Acute appendicitis type: with localized peritonitis Appendicitis gangrene presence: with gangrene Appendicitis perforation presence: with perforation Appendicitis abscess presence: with abscess Qualified Code(s): K35.33 - Acute appendicitis with perforation and localized peritonitis, with abscess - Plan pt started on bp meds. would recommend outpatient abx augmentin given his cx. Medically stable to be discharged.
[2019-12-14 12:01] VITALS: BP 150/98; TEMP 98.2
--- NOTE | 2019-12-14 17:39 | PDOC.BPN ---
- Brief Progress Note Encounter Date: 12/14/19 DATE OF ADMISSION: December 10, 2019 DATE OF DISCHARGE: December 14, 2019 ADMISSION DIAGNOSES: Complicated appendicitis Hypertension DISCHARGE DIAGNOSES: Complicated appendicitis Hypertension PROCEDURES: Laparoscopic appendectomy HOSPITAL COURSE: 44-year-old male who presented with abdominal pain. His work-up was consistent with complicated acute appendicitis. He was taken to the operating room on December 10, 2019 where he underwent laparoscopic appendectomy. Given the complicated course of his appendicitis, a drain was left and he was placed on the floor with IV antibiotics. While on the floor his diet was advanced to regular which he tolerated without nausea or vomiting. During his postoperative convalescence, his drain output cleared, he defervesced, and his leukocytosis normalized. The patient had elevated blood pressure. Medicine was consulted for management and he was placed on 20 mg of lisinopril and cleared for discharge. On postoperative day #3, his IV antibiotics were discontinued. On postoperative day #4, his intra-abdominal drain was discontinued. He was to lerating regular diet, ambulating independently, voiding spontaneously, with normal bowel function. He was appropriate for discharge. DISCHARGE MEDICATIONS: see Discharge Medication Reconciliation Tylenol and/or ibuprofen for postoperative pain control Lisinopril 20 mg daily per medical recommendations EXAMINATION: General: alert and oreinted, no acute distress, resting comfortably Cardiovascular: regular rate and rhythm Pulmonary: normal respirations, good tidal volume Abdomen: soft, non-tender, non-distended, incisions clean and intact Extremities: no edema, palpable pulses 1. Advance diet as tolerated. 2. Advance activity as tolerated. Avoid heavy lifting and straining until after postoperative clinic evaluation. Ambulate daily. 3. Take medications as instructed. 4. Follow-up 1-2 weeks. Contact surgery clinic for appointment. 5. Do not remove Dermabond. Wash normally. It will come off on its own. 6. Consider [id number] stool softener or laxative while taking narcotic pain medication. 7. Contact the surgery clinic or report to the emergency department for persistent fevers, increasing pain, persistent nausea or vomiting. 8. May remove drain dressing after 48 hours.
[2019-12-15] MEDS ORDERED: Amlodipine 10 MG TAB PO SCH (09:00)
--- NOTE | 2019-12-15 10:26 | PQF ---
CLINICAL DOCUMENTATION CLARIFICATION FORM: Dear Dr. Momin Date: 12/15/2019 Please exercise your independent, professional judgment in responding to the clarification form. Clinical indicators are provided on the bottom of this form for your review. Please check appropriate box(es): [ x ] Sepsis due to perforated appendicitis. [ ] Sepsis due to other:___ [ ] Localized infection without sepsis [ ] Other diagnosis [ ] Unable to determine In addition, please specify: Present on Admission (POA): [ x ] Yes [ ] No [ ] Unable to determine For continuity of documentation, please document condition throughout progress notes and discharge summary. Thank You. CLINICAL INDICATORS - SIGNS / SYMPTOMS / LABS / RESULTS AND LOCATION IN MR *ED Record 12/09: VS: BP 165/122, pulse 103, Resp. 20 Radiology Interpretation: CT of abdomen perforated appendicitis *H&P 12/09 (Momin): Lab: White count is elevated at 18,000 with a left shift of 86% neutrophils. Assessment: Appendicitis, likely perforated by CT *LAB ([facility]): Glucose level 12/09 123 12/10 193 12/01 105 *12/11 pn (Momin) A/P: Still with leukocytosis and slightly cloudy MYAH output. RISK FACTORS / RESULTS AND LOCATION IN MR *12/09 Op Note (Momin): Perforated appendicitis *12/11 pn (Momin) Narrative: Pansensitive E. coli on periappendiceal abscess cultures TREATMENTS / RESULTS AND LOCATION IN MR ED Record 12/09: Doctor notes: pt given Zosyn, Flagyl, fluids 12/09 Op Note (Momin) Procedure: Laparoscopic appendectomy 12/11 pn (Momin) A/P: Continue IV antibiotics for now 12/13 pn (Luke) postoperative day #4 his intra abdominal drain was discontinued Thank you, Desi Napoles RN, [email or web address] [email or web address] This is a permanent part of the Medical Record [facility]
--- NOTE | 2019-12-20 16:01 | EKG ---
Test Reason : Blood Pressure : / mmHG Vent. Rate : 104 BPM Atrial Rate : 104 BPM P-R Int : 150 ms QRS Dur : 088 ms QT Int : 334 ms P-R-T Axes : 056 000 051 degrees QTc Int : 439 ms Sinus tachycardia Possible Left atrial enlargement Borderline ECG Confirmed by BRENNAN COURTNEY, TOM ([id number]), index editor NICHOLAS FRAIRE ([id number]) on 12/20/2019 4:00:39 PM Referred By: Confirmed By:TOM AMIN MD
== END 2019-12-14 13:20 | disposition home or self-care (01) | DRG 853 ==
LOC: ERS 14:32 → SURG B 17:13
PROVIDERS: ADMIT Surgery; ATTEND Surgery
PROC: 0DTJ4ZZ Resection of Appendix, Percutaneous Endoscopic Approach (ICD-10-PCS; principal; 2019-12-10)
PROC: 0WQF4ZZ Repair Abdominal Wall, Percutaneous Endoscopic Approach (ICD-10-PCS; 2019-12-10)
DX: A41.9 Sepsis, unspecified organism (principal); K35.33 Acute appendicitis with perforation, localized peritonitis, and gangrene, with abscess; F32.9 Major depressive disorder, single episode, unspecified; F17.210 Nicotine dependence, cigarettes, uncomplicated; I10 Essential (primary) hypertension; K42.9 Umbilical hernia without obstruction or gangrene; Z20.828 Contact with and (suspected) exposure to other viral communicable diseases
CPT/HCPCS: 36415; 36416; 71045; 74177; 80048; 80053; 81003; 83036; 83690; 84484; 85025; 85379; 85610; 85730; 87070; 87077; 87186; 87205; 87635; 88304; 93005; 96365; 96368; 96375; J0360; J1100; J1650; J1885; J2250; J2270; J2405; J2543; J2704; J3010; J3480; J3490; Q9967; S0028; U0003

== ENCOUNTER 2020-11-11 10:27 | Emergency (ER) | payer BC ==
[2020-11-11 15:16] LABS: SARS-CoV-2 PCR by NAA Not Detected (NotDetected)
== END 2020-11-11 12:03 | disposition home or self-care (01) ==
LOC: ERS 10:27
DX: R05 Cough (principal); Z20.822 Contact with and (suspected) exposure to COVID-19
CPT/HCPCS: 99283; U0003; U0005

== ENCOUNTER 2021-06-27 13:27 | Emergency (ER) | payer BC | END 2021-06-27 14:49 | disposition home or self-care (01) | LOC: ERS 13:27 | DX: M79.671 Pain in right foot (principal); F17.210 Nicotine dependence, cigarettes, uncomplicated ==

== ENCOUNTER 2023-01-09 12:27 | Emergency (ER) | payer BC, SELFPAY ==
[2023-01-09 14:53] LABS: SARS-CoV-2 NAA Rapid Test Not Detected (NotDetected)
== END 2023-01-09 15:36 | disposition home or self-care (01) ==
LOC: ERS 12:27
DX: J11.1 Influenza due to unidentified influenza virus with other respiratory manifestations (principal); I10 Essential (primary) hypertension; F17.210 Nicotine dependence, cigarettes, uncomplicated; Z20.822 Contact with and (suspected) exposure to COVID-19
CPT/HCPCS: 99283

== ENCOUNTER 2023-08-20 15:50 | Inpatient (IN) | payer SELFPAY ==
[2023-08-20] MEDS ORDERED: dilTIAZem 25 MG/5 ML VIAL ONE (15:55)
[2023-08-20] MEDS ORDERED: levETIRAcetam 500 MG (5 mL) VIAL ONE ×2 (15:55→15:56)
[2023-08-20] MEDS ORDERED: niCARdipine 25 MG/10 ML SDV ONE (16:04)
[2023-08-20 16:20] LABS: %Basophils 0.6 % (0.0-1.0); %Eosinophils 1.2 % (0.0-10.0); %Lymphocytes 18.1 % (21.0-51.0); %Monocytes 6.5 % (0.0-10.0); %Neutrophils 72.3 % (42.0-75.0); Hematocrit 43.9 % (42.0-52.0); Hemoglobin 14.8 g/dL (14.0-18.0); Mean Corpuscular HGB CONC 33.7 g/dL (32.0-36.0); Mean Corpuscular Volume 106.8 fL (78.0-98.0); Mean Platelet Volume 9.3 fL (7.4-10.4); Platelet Count 431 10x3/uL (130-400); RBC Distribution Width 12.6 % (11.5-14.5); Red Blood Cell (RBC) Count 4.11 mill/uL (4.70-6.10)
[2023-08-20 16:33] LABS: Analyzer IN Cardio ER; Base Excess -10.5 mEq/L (-2.0 to +3.0); Calcium, Ionized (venous) 1.14 mmol/L (1.16-1.32); Chloride (VBG) 100 mmol/L (98-106); Hematocrit-VBG 46 % (42.0-52.0); Hemoglobin (Hb) 15.8 g/dL (13.1-17.2); Potassium (VBG) 3.52 mmol/L (3.70-5.30); Sodium 144 mmol/L (133-146)
[2023-08-20 16:34] LABS: pH (venous) 7.149 (7.32-7.43)
[2023-08-20 16:35] LABS: Lipase 25 U/L (8-78)
[2023-08-20 16:37] LABS: ALT (SGPT) 28 U/L (8-55); AST (SGOT) 33 U/L (5-34); Acetaminophen Less than 10 mcg/mL (10.0-30.0); Albumin 4.2 g/dL (3.5-5.0); Alcohol Less than 10.0 mg/dL (Less than 10); Alkaline Phosphatase 105 U/L (40-110); Anion Gap 23 mmol/L (10-20); BUN (Urea Nitrogen) 15 mg/dL (8.9-20.6); Bilirubin, Total 0.5 mg/dL (0.2-1.2); CK (CPK) 358 U/L (30-200); Calc. Creatinine Clearance 0 mL/min (70-130); Calcium 9.3 mg/dL (7.8-10.44); Carbon Dioxide 19 mmol/L (22-29); Chloride 102 mmol/L (98-107); Estimated GFR 61; Globulin 3.2 g/dL (2.4-3.5); Glucose 245 mg/dL (70-105); Potassium 3.3 mmol/L (3.5-5.1); Protein, Total 7.4 g/dL (6.0-8.3); Salicylate Less than 8.0 mg/dL (15.0-30.0); Sodium 141 mmol/L (136-145)
[2023-08-20] MEDS ORDERED: Etomidate 40 MG (20 mL) VIAL ONE (16:47)
[2023-08-20] MEDS ORDERED: Lorazepam 2 MG/ML VIAL ONE ×2 (16:48→19:32)
[2023-08-20] MEDS ORDERED: Propofol 1,000 MG/100 ML VIAL IV ONE ×2 (16:48→20:39)
[2023-08-20] MEDS ORDERED: Rocuronium Bromide 10 MG/ML (10ML VIAL) ONE (16:49)
[2023-08-20] MEDS ORDERED: Fosphenytoin Sodium 500 mg/10 ml Vial ONE (16:50)
[2023-08-20 16:58] LABS: Troponin I Less than 0.010 ng/mL (< 0.028)
[2023-08-20 17:46] LABS: Actual Bicarbonate (HCO3a) 23.6 mEq/L (22-28); Analyzer IN Cardio ER; Base Excess (BEa) -3.8 mEq/L (-2.0 to +3.0); CO2 Tension 52.1 mmHg (35.0-45.0); Calcium, Ionized (arterial) 1.15 mmol/L (1.12-1.30); Carboxyhemoglobin (COHb) 1.3 gm% (0.0-3.0); Hematocrit-ABG 44 % (42.0-52.0); O2 Tension (PaO2), arterial 79.9 mmHg (80.0-100.0); pH, Arterial 7.274 (7.35-7.45)
[2023-08-20 17:56] LABS: ALV-art Gradient 140.175 mmHg (0-20); Puncture Site RRA
[2023-08-20] MEDS ORDERED: fentaNYL 50 mcg/mL 1 mL Vial ONE (18:50)
[2023-08-20] MEDS ORDERED: Fentanyl BOLUS 250 ML IVPB PRN (19:00)
[2023-08-20] MEDS ORDERED: Fentanyl CADD 100 ML IV SCH (19:00)
[2023-08-20] MEDS ORDERED: Ondansetron ODT 4 MG TAB SL PRN (19:23)
[2023-08-20] MEDS ORDERED: Ondansetron PF 4 MG/2 ML Vial IVP PRN (19:23)
[2023-08-20] MEDS ORDERED: Thiamine HCl 200 MG/2 ML VIAL ONE (19:34)
[2023-08-20] MEDS ORDERED: Magnesium 2 GM/50 ML BAG (IN WATER) ONE (19:34)
[2023-08-20] MEDS ORDERED: Acetaminophen 650 MG Suppository PR PRN (19:51)
[2023-08-20 20:06] LABS: Bacteria/HPF None Seen HPF (None Seen); Bilirubin Negative (Negative); Blood, Urine 1+ (Negative); CAUTI Indications for Culture Alt mental st,lethar; Clarity Clear (Clear); Glucose, Urine (Dipstick) 70 mg/dL (Negative); Ketone, Urine Negative (Negative); Leukocyte Negative Leu/uL (Negative); Nitrite Negative (Negative); Protein, Urine (Dipstick) 50 mg/dL (Neg-Trace); RBC/HPF None Seen HPF (0-3); Specific Gravity, Urine 1.017 (1.002-1.036); Squamous Epithelial 0-3 HPF (0-3); Urobilinogen Normal mg/dL (Less than 2); WBC/HPF 0-3 HPF (0-3)
[2023-08-20 20:08] LABS: Urine Culture Reflex No No
[2023-08-20 20:11] LABS: Amphetamine Not Detected (NotDetected); Barbiturates Screen Not Detected (NotDetected); Benzodiazepine Screen Not Detected (NotDetected); Cocaine Metabolite Screen Not Detected (NotDetected); Methadone Not Detected (NotDetected); Methamphetamine Not Detected (NotDetected); Opiate Screen Not Detected (NotDetected); Oxycodone Screen Not Detected (NotDetected); Phencyclidine (PCP) Not Detected (NotDetected); THC/Cannabinoid Screen Detected (NotDetected); Tricyclic Screen Not Detected (NotDetected)
[2023-08-20] MEDS ORDERED: Electrolyte Replacement Protocol FS SCH (21:09)
[2023-08-20] MEDS ORDERED: Lorazepam 2 MG/ML VIAL SLOW IVP PRN ×2 (21:12→21:45)
[2023-08-20] MEDS ORDERED: Ventilator Sedation Protocol 1 EACH FS SCH (21:15)
[2023-08-20 21:29] VITALS: BMI 27.1
[2023-08-20] MEDS ORDERED: DISCONTINUE PREVIOUS NARCOTIC PAIN MEDICATIONS AND BENZODIAZEPINES FS SCH (21:45)
[2023-08-20] MEDS ORDERED: Piperacillin/Tazobactam 3.375 GM in Sodium Chloride 0.9% 100 ML IVPB SCH (21:45)
[2023-08-20] MEDS ORDERED: Propofol BOLUS 1,000 MG/100 ML VIAL IV PRN (21:45)
[2023-08-20] MEDS ORDERED: Morphine 2 MG/ML VIAL SLOW IVP PRN (21:45)
[2023-08-20] MEDS: Lactated Ringer's 1,000 ML IV SCH (22:08)
[2023-08-20] MEDS: Piperacillin/Tazobactam 3.375 GM in Sodium Chloride 0.9% 100 ML IVPB SCH (22:08)
[2023-08-20] MEDS: Multivitamins, Adult 10 ML, Folic Acid 1 MG, Thiamine HCl 100 MG, Admixture Fee 1 EACH ... IV SCH (22:09)
[2023-08-20] MEDS: Propofol 1,000 MG/100 ML VIAL IV PRN (22:55)
[2023-08-21 01:15] LABS: Magnesium 2.4 mg/dL (1.6-2.6)
[2023-08-21] MEDS: Piperacillin/Tazobactam 3.375 GM in Sodium Chloride 0.9% 100 ML IVPB SCH (02:11)
[2023-08-21 04:34] LABS: #Basophils Less than 0.03 10x3/uL (0.0-0.2); %Basophils 0.2 % (0.0-1.0); %Eosinophils 1.6 % (0.0-10.0); %Lymphocytes 25.4 % (21.0-51.0); %Neutrophils 64.4 % (42.0-75.0); Hematocrit 35.7 % (42.0-52.0); Mean Corpuscular HGB CONC 33.6 g/dL (32.0-36.0); Mean Corpuscular Hemoglobin 35.3 pg (27.0-31.0); Mean Platelet Volume 9.4 fL (7.4-10.4); Platelet Count 267 10x3/uL (130-400)
[2023-08-21 04:48] LABS: Lactic Acid 2.1 mmol/L (0.5-2.2)
[2023-08-21 04:52] LABS: Anion Gap 12 mmol/L (10-20); BUN (Urea Nitrogen) 11 mg/dL (8.9-20.6); Calc. Creatinine Clearance 116 mL/min (70-130); Calcium 8.1 mg/dL (7.8-10.44); Carbon Dioxide 28 mmol/L (22-29); Chloride 107 mmol/L (98-107); Estimated GFR 90; Glucose 94 mg/dL (70-105); Magnesium 2.4 mg/dL (1.6-2.6); Potassium 2.9 mmol/L (3.5-5.1); Sodium 144 mmol/L (136-145)
[2023-08-21 05:21] LABS: Thyroid Stimulating Hormone 0.7249 uIU/mL (0.35-4.94)
[2023-08-21] MEDS: levETIRAcetam 500 MG (5 mL) VIAL SLOW IVP SCH (06:10)
[2023-08-21] MEDS: Potassium Chloride 20 MEQ in Premix 1 BAG IVPB SCH (06:40)
[2023-08-21 07:33] LABS: Actual Bicarbonate (HCO3a) 26.1 mEq/L (22-28); Base Excess (BEa) 2.1 mEq/L (-2.0 to +3.0); CO2 Tension 38.4 mmHg (35.0-45.0); Calcium, Ionized (arterial) 1.12 mmol/L (1.12-1.30); Carboxyhemoglobin (COHb) 0.1 gm% (0.0-3.0); Hematocrit-ABG 39 % (42.0-52.0); Hemoglobin (Hb) 13.1 g/dL (14.0-18.0); O2 Tension (PaO2), arterial 102.7 mmHg (80.0-100.0)
[2023-08-21 07:36] LABS: Puncture Site LBA
[2023-08-21] MEDS: Enoxaparin 40 MG (0.4 mL) SYRINGE SC SCH (08:06)
[2023-08-21] MEDS: Famotidine/PF 20 mg/2ml Vial SLOW IVP SCH (08:06)
[2023-08-21] MEDS: hydrALAZINE 20 MG/ML VIAL SLOW IVP SCH (15:54)
[2023-08-21] MEDS: Nicotine 21 MG PATCH TD SCH (16:53)
[2023-08-21] MEDS: Ketorolac Tromethamine 30 MG (1 mL) VIAL IVP SCH (20:50)
[2023-08-21] MEDS: DC Sedation Protocol FS ONE (22:18)
[2023-08-22 04:22] LABS: #Basophils 0.04 10x3/uL (0.0-0.2); %Basophils 0.4 % (0.0-1.0); %Eosinophils 0.8 % (0.0-10.0); %Lymphocytes 14.4 % (21.0-51.0); %Monocytes 7.7 % (0.0-10.0); %Neutrophils 76.4 % (42.0-75.0); Hematocrit 39.2 % (42.0-52.0); Hemoglobin 13.3 g/dL (14.0-18.0); Mean Corpuscular HGB CONC 33.9 g/dL (32.0-36.0); Mean Corpuscular Volume 103.2 fL (78.0-98.0); Mean Platelet Volume 9.4 fL (7.4-10.4); Platelet Count 242 10x3/uL (130-400); RBC Distribution Width 12.6 % (11.5-14.5)
[2023-08-22 04:46] LABS: ALT (SGPT) 17 U/L (8-55); AST (SGOT) 24 U/L (5-34); Albumin 3.4 g/dL (3.5-5.0); Alkaline Phosphatase 108 U/L (40-110); Anion Gap 15 mmol/L (10-20); BUN (Urea Nitrogen) 6 mg/dL (8.9-20.6); Bilirubin, Total 1.4 mg/dL (0.2-1.2); Calc. Creatinine Clearance 122 mL/min (70-130); Calcium 8.9 mg/dL (7.8-10.44); Carbon Dioxide 25 mmol/L (22-29); Chloride 106 mmol/L (98-107); Estimated GFR 96; Glucose 99 mg/dL (70-105); Protein, Total 6.4 g/dL (6.0-8.3); Sodium 143 mmol/L (136-145)
[2023-08-22] MEDS: Potassium Chloride 20 MEQ in Premix 1 BAG IVPB SCH (05:49)
[2023-08-22] MEDS: hydrALAZINE 20 MG/ML VIAL SLOW IVP PRN (07:46)
[2023-08-22] MEDS: Lisinopril 10 MG TAB PO SCH ×2 (12:06→19:41)
[2023-08-22 14:46] LABS: Potassium 3.4 mmol/L (3.5-5.1)
[2023-08-22] MEDS: Nicotine 21 MG PATCH TD SCH (17:53)
[2023-08-22] MEDS: Acetaminophen 325 MG TAB PO PRN (17:54)
[2023-08-22] MEDS: levETIRAcetam 500 MG TAB PO SCH (19:41)
[2023-08-22] MEDS: Potassium Chloride 20 MEQ TAB PO SCH (19:47)
[2023-08-22] MEDS ORDERED: Lisinopril 20 MG TAB PO SCH (21:00)
[2023-08-22] MEDS: hydrOXYzine 25 MG TAB PO SCH (21:47)
[2023-08-23 06:46] LABS: #Basophils 0.03 10x3/uL (0.0-0.2); %Basophils 0.3 % (0.0-1.0); %Eosinophils 1.7 % (0.0-10.0); %Lymphocytes 11.5 % (21.0-51.0); %Monocytes 6.5 % (0.0-10.0); %Neutrophils 79.5 % (42.0-75.0); Hematocrit 40.7 % (42.0-52.0); Mean Corpuscular HGB CONC 34.4 g/dL (32.0-36.0); Mean Corpuscular Hemoglobin 35.6 pg (27.0-31.0); Mean Corpuscular Volume 103.6 fL (78.0-98.0); Mean Platelet Volume 9.5 fL (7.4-10.4); Platelet Count 265 10x3/uL (130-400); RBC Distribution Width 12.4 % (11.5-14.5); Red Blood Cell (RBC) Count 3.93 mill/uL (4.70-6.10)
[2023-08-23 07:15] LABS: ALT (SGPT) 15 U/L (8-55); AST (SGOT) 30 U/L (5-34); Albumin 3.5 g/dL (3.5-5.0); Alkaline Phosphatase 119 U/L (40-110); Anion Gap 12 mmol/L (10-20); BUN (Urea Nitrogen) 7 mg/dL (8.9-20.6); Bilirubin, Total 1.4 mg/dL (0.2-1.2); Calc. Creatinine Clearance 115 mL/min (70-130); Calcium 9.6 mg/dL (7.8-10.44); Carbon Dioxide 22 mmol/L (22-29); Chloride 107 mmol/L (98-107); Estimated GFR 90; Globulin 3.4 g/dL (2.4-3.5); Glucose 111 mg/dL (70-105); Potassium 3.1 mmol/L (3.5-5.1); Protein, Total 6.9 g/dL (6.0-8.3); Sodium 138 mmol/L (136-145)
[2023-08-23] MEDS: Potassium Chloride 20 MEQ TAB PO SCH ×2 (07:53→13:05)
[2023-08-23] MEDS: Aspirin Chewable 81 MG TAB PO SCH (17:56)
[2023-08-23] MEDS: Lorazepam 2 MG/ML VIAL SLOW IVP SCH (17:57)
[2023-08-23] MEDS: Atorvastatin Calcium 40 MG TAB PO SCH (22:47)
[2023-08-24 05:08] LABS: #Basophils 0.04 10x3/uL (0.0-0.2); %Basophils 0.4 % (0.0-1.0); %Eosinophils 3.2 % (0.0-10.0); %Neutrophils 70.9 % (42.0-75.0); Hematocrit 39.3 % (42.0-52.0); Hemoglobin 13.2 g/dL (14.0-18.0); Mean Corpuscular HGB CONC 33.6 g/dL (32.0-36.0); Mean Corpuscular Hemoglobin 35.2 pg (27.0-31.0); Mean Corpuscular Volume 104.8 fL (78.0-98.0); Mean Platelet Volume 9.6 fL (7.4-10.4); Platelet Count 276 10x3/uL (130-400); RBC Distribution Width 12.5 % (11.5-14.5); Red Blood Cell (RBC) Count 3.75 mill/uL (4.70-6.10)
[2023-08-24 05:24] LABS: ALT (SGPT) 42 U/L (8-55); AST (SGOT) 58 U/L (5-34); Albumin 3.2 g/dL (3.5-5.0); Alkaline Phosphatase 113 U/L (40-110); Anion Gap 14 mmol/L (10-20); BUN (Urea Nitrogen) 8 mg/dL (8.9-20.6); Bilirubin, Total 0.9 mg/dL (0.2-1.2); Calc. Creatinine Clearance 140 mL/min (70-130); Calcium 9.3 mg/dL (7.8-10.44); Carbon Dioxide 19 mmol/L (22-29); Cardiac Risk 6.1 (Less than 4.5); Chloride 108 mmol/L (98-107); Cholesterol 221 mg/dl (< 200 Desired); Estimated GFR 107; Globulin 3.3 g/dL (2.4-3.5); Glucose 107 mg/dL (70-105); HDL Cholesterol 36 mg/dL (>60 Neg Risk); LDL Cholesterol, Calculated 138 mg/dL; Potassium 3.3 mmol/L (3.5-5.1); Protein, Total 6.5 g/dL (6.0-8.3); Sodium 138 mmol/L (136-145); Triglycerides 233 mg/dL (Less than 150)
[2023-08-24] MEDS: Aspirin 81 mg Enteric Coated Tablet PO SCH (08:46)
[2023-08-24] MEDS: Potassium Chloride 20 MEQ TAB PO SCH (08:47)
[2023-08-24 10:59] VITALS: BMI 27.0
[2023-08-24 16:57] VITALS: BP 154/108; TEMP 97.8
== END 2023-08-24 18:01 | disposition home or self-care (01) | DRG 64 ==
LOC: ERS 15:50 → CCU 19:30 → T4-A 08-22 15:04 → 2SE 08-23 18:48
PROVIDERS: ADMIT Student in an Organized Health Care Education/Training Program; ATTEND Internal Medicine
PROC: 4A133R1 Monitoring of Arterial Saturation, Peripheral, Percutaneous Approach (ICD-10-PCS; 2023-08-20)
PROC: 0BH17EZ Insertion of Endotracheal Airway into Trachea, Via Natural or Artificial Opening (ICD-10-PCS; 2023-08-20)
PROC: 5A1935Z Respiratory Ventilation, Less than 24 Consecutive Hours (ICD-10-PCS; 2023-08-20)
PROC: 4A10X4Z Monitoring of Central Nervous Electrical Activity, External Approach (ICD-10-PCS; principal; 2023-08-21)
DX: I63.81 Other cerebral infarction due to occlusion or stenosis of small artery (principal); J69.0 Pneumonitis due to inhalation of food and vomit; J96.01 Acute respiratory failure with hypoxia; I16.1 Hypertensive emergency; N17.9 Acute kidney failure, unspecified; E87.20 Acidosis, unspecified; G93.40 Encephalopathy, unspecified; E87.6 Hypokalemia; F17.210 Nicotine dependence, cigarettes, uncomplicated; F12.10 Cannabis abuse, uncomplicated; F10.10 Alcohol abuse, uncomplicated; I10 Essential (primary) hypertension; Z79.899 Other long term (current) drug therapy; Z88.5 Allergy status to narcotic agent; Z90.49 Acquired absence of other specified parts of digestive tract; Z71.6 Tobacco abuse counseling
CPT/HCPCS: 31500; 36415; 36556; 36600; 70450; 70551; 71045; 80048; 80053; 80061; 80306; 80307; 81001; 82140; 82550; 82607; 82805; 83605; 83690; 83735; 83880; 84100; 84146; 84443; 84484; 85025; 93005; 93306; 93880; 94002; 95700; 95711; 95819; 96365; 96374; 96375; 96376; J0360; J1650; J1885; J1953; J2060; J2543; J2704; J3010; J3411; J3475; J3480; J3490; J7042; J7120; Q2009; S0028

== ENCOUNTER 2023-11-05 10:19 | Emergency (ER) | payer SELFPAY ==
[2023-11-05 12:05] LABS: #Basophils 0.05 10x3/uL (0.0-0.2); %Basophils 0.5 % (0.0-1.0); %Lymphocytes 15.7 % (21.0-51.0); %Monocytes 7.9 % (0.0-10.0); %Neutrophils 73.5 % (42.0-75.0); Hematocrit 37.8 % (42.0-52.0); Hemoglobin 13.1 g/dL (14.0-18.0); Mean Corpuscular HGB CONC 34.7 g/dL (32.0-36.0); Mean Corpuscular Hemoglobin 34.5 pg (27.0-31.0); Mean Corpuscular Volume 99.5 fL (78.0-98.0); Mean Platelet Volume 9.4 fL (7.4-10.4); Platelet Count 294 10x3/uL (130-400); RBC Distribution Width 12.2 % (11.5-14.5)
[2023-11-05 12:23] LABS: ALT (SGPT) 34 U/L (8-55); AST (SGOT) 30 U/L (5-34); Albumin 3.8 g/dL (3.5-5.0); Alkaline Phosphatase 154 U/L (40-110); Anion Gap 14 mmol/L (10-20); BUN (Urea Nitrogen) 10 mg/dL (8.9-20.6); Bilirubin, Total 1.5 mg/dL (0.2-1.2); CRP,High Sensitivity (Inhouse) 2.55 mg/dL (< or = 0.5); Calc. Creatinine Clearance 0 mL/min (70-130); Calcium 9.7 mg/dL (7.8-10.44); Carbon Dioxide 20 mmol/L (22-29); Chloride 107 mmol/L (98-107); Estimated GFR 108; Globulin 3.6 g/dL (2.4-3.5); Glucose 108 mg/dL (70-105); Potassium 3.4 mmol/L (3.5-5.1); Protein, Total 7.4 g/dL (6.0-8.3); Sodium 138 mmol/L (136-145)
== END 2023-11-05 13:54 | disposition home or self-care (01) ==
LOC: ERS 10:19
DX: M79.672 Pain in left foot (principal); I10 Essential (primary) hypertension; F17.210 Nicotine dependence, cigarettes, uncomplicated; Z79.899 Other long term (current) drug therapy; Z79.82 Long term (current) use of aspirin
CPT/HCPCS: 36415; 80053; 83605; 85025; 86141; 87040; 99283